=== PATIENT | male | born 1980 | race African-American/Black ===

== ENCOUNTER 2020-01-14 14:02 | Inpatient (IN) | payer OTHER ==
--- NOTE | 2020-01-14 14:23 | BHS.RME ---
Substance Use & Tx History - Substance Use History Alcohol Frequency of use: Less than 3 times per week Substance route: Oral Date of Last Use: 01/14/20 Physical/Psych/Mental Status - Behavior General Behavior: Decreased activity Eye Contact: Normal - Cooperativeness Cooperativeness: Cooperative - Thinking Thought Processes: Loosened Thought content: Future oriented - Physical Health Problems Is patient presently having any pain?: No Does patient presently have any injuries (include location): No Does patient currently have a fever: No Is patient : No CIWA Nausea/Vomitin-No Nausea/No Vomiting Muscle Tremors: 2 Anxiety: 3 Agitation: 0-Normal Activity Paroxysmal Sweats: 1-Minimal Palms Moist Orientation: 0-Oriented Tacttile Disturbances: 0-None Auditory Disturbances: 0-None Visual Disturbances: 0-None Headache: 0-None Present CIWA-Ar Total Score: 6
--- NOTE | 2020-01-14 17:23 | HP ---
CIWA Score Nausea/Vomitin-No Nausea/No Vomiting Muscle Tremors: 2 Anxiety: 3 Agitation: 0-Normal Activity Paroxysmal Sweats: 1-Minimal Palms Moist Orientation: 0-Oriented Tacttile Disturbances: 0-None Auditory Disturbances: 0-None Visual Disturbances: 0-None Headache: 0-None Present CIWA-Ar Total Score: 6 - Admission Criteria OASAS Guidelines: Admission for Medically Managed Detox: Requires at least one of the followin. CIWA greater than 12 2. Seizures within the past 24 hours 3. Delirium tremens within the past 24 hours 4. Hallucinations within the past 24 hours 5. Acute intervention needed for co occurring medical disorder 6. Acute intervention needed for co occurring psychiatric disorder 7. Severe withdrawal that cannot be handled at a lower level of care (continued vomiting, continued diarrhea, abnormal vital signs) requiring intravenous medication and/or fluids 8. Breathalyzer - Breathalyzer Breathalyzer: 0.271 Urine Drug Screen - Test Device Lot number: [id number] Expiration date: 10/10/21 - Control Is test valid?: Yes - Results Drug screen NEGATIVE: No Urine drug screen results: BZO-Benzodiazepines
[2020-01-14 18:25] VITALS: BMI 28.3
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
[2020-01-14] MEDS ORDERED: ALBUTEROL SO4 HFA INHALER IH PRN (19:01)
[2020-01-14] MEDS ORDERED: MAGNESIUM HYDROX 2400MG/30ML ORAL SUSPENSION 30 ML CUP PO PRN (19:02)
[2020-01-14] MEDS ORDERED: MAGNESIUM CITRATE 300 ML BOTTLE PO PRN (19:02)
[2020-01-14] MEDS ORDERED: ACETAMINOPHEN 325 MG TABLET (FP) PO PRN ×2 (19:02)
[2020-01-14] MEDS ORDERED: IBUPROFEN 400 MG TABLET (FP) PO PRN (19:02)
[2020-01-14] MEDS ORDERED: MENTHOL/PHENOL 1 EACH UD MM PRN (19:02)
[2020-01-14] MEDS ORDERED: MAG HYDROX/AL HYDROX/SIMETH 30 ML UNIT-DOSE CUP PO PRN (19:02)
[2020-01-14] MEDS ORDERED: BISMUTH SUBSALICYLATE 524 MG/30 ML UD PO PRN (19:02)
[2020-01-14] MEDS: chlordiazePOXIDE HCL 10 MG CAPSULE PO PRN (20:08)
[2020-01-14] MEDS ORDERED: METOPROLOL TARTRATE 25 MG TABLET (FP) PO ONE (20:55)
[2020-01-14] MEDS: THIAMINE HCL 100 MG TABLET (FP) PO SCH (21:15)
[2020-01-14] MEDS: hydrOXYzine PAMOATE 25 MG CAPSULE (FP) PO PRN (21:15)
[2020-01-14] MEDS: chlordiazePOXIDE HCL 25 MG CAPSULE PO SCH (21:15)
[2020-01-14] MEDS: MELATONIN 5 MG TABLETS PO SCH (21:15)
[2020-01-15] MEDS: chlordiazePOXIDE HCL 25 MG CAPSULE PO SCH ×3 (05:31→21:05)
[2020-01-15 10:30] LABS: HEMATOCRIT 41.4 % (35.4-49); HEMOGLOBIN 13.9 GM/dL (11.7-16.9); MCH 32.8 pg (25.7-33.7); MCHC 33.7 g/dl (32.0-35.9); MEAN CELL VOLUME 97.3 fl (80-96); MEAN PLT VOLUME 10.1 fl (7.5-11.1); PLATELET COUNT 200 K/MM3 (134-434); RBC 4.25 M/mm3 (4.00-5.60); RDW 13.9 % (11.9-15.9); WHITE BLOOD COUNT 3.2 K/mm3 (4.0-10.0)
[2020-01-15] MEDS: PRENATAL VITAMINS W/ FOLIC ACID TABLET (FP) PO SCH (10:41)
[2020-01-15] MEDS: LISINOPRIL 20 MG TABLET (FP) PO SCH (10:41)
[2020-01-15] MEDS: FAMOTIDINE 20 MG TABLET PO SCH (10:41)
[2020-01-15] MEDS: chlordiazePOXIDE HCL 10 MG CAPSULE PO PRN (10:43)
[2020-01-15] MEDS: NICOTINE POLACRILEX 2 MG GUM BUC PRN (10:50)
[2020-01-15 11:00] LABS: POTASSIUM 4.4 mmol/L (3.5-5.1); TOT PROT 7.7 g/dl (6.4-8.2)
--- NOTE | 2020-01-15 11:52 | PN ---
S CIWA - CIWA Score Nausea/Vomitin-Mild Nausea/No Vomiting Muscle Tremors: 2 Anxiety: 2 Agitation: 2 Paroxysmal Sweats: No Perspiration Orientation: 0-Oriented Tacttile Disturbances: 1-Very Mild Itch/Numbness Auditory Disturbances: 0-None Visual Disturbances: 0-None Headache: 1-Very Mild CIWA-Ar Total Score: 9 S Progress Note (SOAP) Subjective: alert,irritable,anxious,interrupted sleep,tremor Objective: 01/15/20 11:50 Vital Signs Temperature 98.2 F 01/15/20 09:07 Pulse Rate 98 H 01/15/20 09:07 Respiratory Rate 18 01/15/20 09:07 Blood Pressure 148/83 01/15/20 09:07 O2 Sat by Pulse Oximetry (%) 01/15/20 11:50 01/15/20 01/15/20 07:45 07:45 WBC 3.2 L RBC 4.25 Hgb 13.9 Hct 41.4 MCV 97.3 H MCHC 33.7 RDW 13.9 Plt Count 200 Sodium 142 Potassium 4.4 Chloride 104 Carbon Dioxide 32 Anion Gap 6 L BUN 9.0 Creatinine 1.0 01/15/20 11:51 Laboratory Last Values WBC 3.2 K/mm3 (4.0-10.0) L 01/15/20 07:45 RBC 4.25 M/mm3 (4.00-5.60) 01/15/20 07:45 Hgb 13.9 GM/dL (11.7-16.9) 01/15/20 07:45 Hct 41.4 % (35.4-49) 01/15/20 07:45 MCV 97.3 fl (80-96) H 01/15/20 07:45 MCH 32.8 pg (25.7-33.7) 01/15/20 07:45 MCHC 33.7 g/dl (32.0-35.9) 01/15/20 07:45 RDW 13.9 % (11.9-15.9) 01/15/20 07:45 Plt Count 200 K/MM3 (134-434) 01/15/20 07:45 MPV 10.1 fl (7.5-11.1) 01/15/20 07:45 Sodium 142 mmol/L (136-145) 01/15/20 07:45 Potassium 4.4 mmol/L (3.5-5.1) 01/15/20 07:45 Chloride 104 mmol/L (98-107) 01/15/20 07:45 Carbon Dioxide 32 mmol/L (21-32) 01/15/20 07:45 Anion Gap 6 MMOL/L (8-16) L 01/15/20 07:45 BUN 9.0 mg/dL (7-18) 01/15/20 07:45 Creatinine 1.0 mg/dL (0.55-1.3) 01/15/20 07:45 Est GFR (CKD-EPI)AfAm 109.40 01/15/20 07:45 Est GFR (CKD-EPI)NonAf 94.39 01/15/20 07:45 Random Glucose 67 mg/dL (74-106) L 01/15/20 07:45 Calcium 9.0 mg/dL (8.5-10.1) 01/15/20 07:45 Total Bilirubin 1.0 mg/dL (0.2-1) 01/15/20 07:45 AST 35 U/L (15-37) 01/15/20 07:45 ALT 73 U/L (13-61) H 01/15/20 07:45 Alkaline Phosphatase 69 U/L (45-117) 01/15/20 07:45 Total Protein 7.7 g/dl (6.4-8.2) 01/15/20 07:45 Albumin 4.0 g/dl (3.4-5.0) 01/15/20 07:45 RPR Titer Nonreactive (NONREACTIVE) 01/15/20 07:45 Assessment: 01/15/20 11:51 withdrawal symptom Plan: continue detox librium regimen,bpmpnitoring
[2020-01-15] MEDS ORDERED: FLU VACCINE QUAD 60 MCG/0.5 ML (MDV 19-20) IM ONE (12:00)
[2020-01-15] MEDS: NICOTINE 14 MG/24 HOURS TOPICAL PATCH TD SCH (12:38)
[2020-01-15] MEDS: hydrOXYzine PAMOATE 25 MG CAPSULE (FP) PO PRN (18:10)
[2020-01-15] MEDS: THIAMINE HCL 100 MG TABLET (FP) PO SCH (21:04)
[2020-01-15] MEDS: MELATONIN 5 MG TABLETS PO SCH (21:05)
[2020-01-16] MEDS: chlordiazePOXIDE HCL 10 MG CAPSULE PO SCH ×3 (06:45→22:13)
[2020-01-16] MEDS: NICOTINE 14 MG/24 HOURS TOPICAL PATCH TD SCH (10:07)
[2020-01-16] MEDS: PRENATAL VITAMINS W/ FOLIC ACID TABLET (FP) PO SCH (10:07)
[2020-01-16] MEDS: LISINOPRIL 20 MG TABLET (FP) PO SCH (10:07)
[2020-01-16] MEDS: FAMOTIDINE 20 MG TABLET PO SCH (10:07)
--- NOTE | 2020-01-16 12:15 | PN ---
[facility] CIWA - CIWA Score Nausea/Vomitin-Mild Nausea/No Vomiting Muscle Tremors: 1-None Visible, but [place] Anxiety: 2 Agitation: 2 Paroxysmal Sweats: No Perspiration Orientation: 0-Oriented Tacttile Disturbances: 1-Very Mild Itch/Numbness Auditory Disturbances: 0-None Visual Disturbances: 0-None Headache: 1-Very Mild CIWA-Ar Total Score: 8 BHS Progress Note (SOAP) Subjective: alert,irritable,anxious,interrupted sleep Objective: 01/16/20 12:14 Vital Signs Temperature 98.4 F 01/16/20 08:52 Pulse Rate 80 01/16/20 08:52 Respiratory Rate 19 01/16/20 08:52 Blood Pressure 152/78 01/16/20 08:52 O2 Sat by Pulse Oximetry (%) Assessment: 01/16/20 12:14 withdrawal symptom Plan: continue detox librium regimen,bgm x 1,initial glucose 67
[2020-01-16] MEDS: NICOTINE POLACRILEX 2 MG GUM BUC PRN (14:32)
[2020-01-16] MEDS: THIAMINE HCL 100 MG TABLET (FP) PO SCH (22:13)
[2020-01-16] MEDS: MELATONIN 5 MG TABLETS PO SCH (22:13)
[2020-01-17] MEDS ORDERED: chlordiazePOXIDE HCL 10 MG CAPSULE PO ONE (05:00)
--- NOTE | 2020-01-17 09:08 | DS ---
[facility] Detox Discharge Summary Admission Date: 01/14/20 Discharge Date: 01/17/20 - History Present History: Alcohol Dependence - Physical Exam Results Vital Signs: Vital Signs Temperature 97.9 F 01/17/20 06:03 Pulse Rate 89 01/17/20 06:03 Respiratory Rate 01/17/20 06:03 Blood Pressure 138/96 01/17/20 06:03 O2 Sat by Pulse Oximetry (%) Pertinent Admission Physical Exam Findings: Vital Signs Temperature 97.9 F 01/17/20 06:03 Pulse Rate 89 01/17/20 06:03 Respiratory Rate 01/17/20 06:03 Blood Pressure 138/96 01/17/20 06:03 O2 Sat by Pulse Oximetry (%) Laboratory Tests 01/15/20 01/15/20 01/15/20 07:45 07:45 07:45 WBC 3.2 L RBC 4.25 Hgb 13.9 Hct 41.4 MCV 97.3 H MCH 32.8 MCHC 33.7 RDW 13.9 Plt Count 200 MPV 10.1 Sodium 142 Potassium 4.4 Chloride 104 Carbon Dioxide 32 Anion Gap 6 L BUN 9.0 Creatinine 1.0 Est GFR (CKD-EPI)AfAm 109.40 Est GFR (CKD-EPI)NonAf 94.39 POC Glucometer Random Glucose 67 L Calcium 9.0 Total Bilirubin 1.0 AST 35 ALT 73 H Alkaline Phosphatase 69 Total Protein 7.7 Albumin 4.0 RPR Titer Nonreactive 01/17/20 07:25 WBC RBC Hgb Hct MCV MCH MCHC RDW Plt Count MPV Sodium Potassium Chloride Carbon Dioxide Anion Gap BUN Creatinine Est GFR (CKD-EPI)AfAm Est GFR (CKD-EPI)NonAf POC Glucometer 111 Random Glucose Calcium Total Bilirubin AST ALT Alkaline Phosphatase Total Protein Albumin RPR Titer aaox3 ambulating no acute distress lungs CTA - Treatment Hospital Course: Detox Protocol Followed, Detoxed Safely, Responded well, Discharged Condition Good, Rehab Referral Accepted - Medication Discharge Medications: Ambulatory Orders Albuterol Sulfate Inhaler - [Ventolin Hfa Inhaler -] 1 - 2 inh PO PRN PRN 01/14/20 Albuterol Sulfate Inhaler - [Ventolin Hfa Inhaler -] 2 inh PO BID 01/14/20 Chlordiazepoxide [Librium -] 25 mg PO TID 01/14/20 Famotidine 20 mg PO DAILY 01/14/20 Lisinopril [Prinivil] 20 mg PO DAILY 01/14/20
[2020-01-17 11:26] VITALS: BP 148/97; PULSE 88; TEMP 98.2
== END 2020-01-17 09:39 | disposition home or self-care (01) | DRG 775 ==
LOC: YASAS 14:02 → Y6N 19:08
PROVIDERS: ADMIT Allergy & Immunology; ATTEND Allergy & Immunology
PROC: HZ2ZZZZ Detoxification Services for Substance Abuse Treatment (ICD-10-PCS; principal; 2020-01-14)
DX: F10.230 Alcohol dependence with withdrawal, uncomplicated (principal); F17.210 Nicotine dependence, cigarettes, uncomplicated; I10 Essential (primary) hypertension; L03.116 Cellulitis of left lower limb; J45.909 Unspecified asthma, uncomplicated; G47.39 Other sleep apnea; Z91.013 Allergy to seafood
CPT/HCPCS: 36415; 80053; 82962; 85027; 86593; Q2036